=== PATIENT | female | born 1980 | race Caucasian/White ===

== ENCOUNTER 2016-09-19 12:22 | Emergency (ER) | payer OTHER ==
[~2016-09-19] VITALS: Ht 157.5 cm; Wt 68.0 kg
--- NOTE | ~2016-09-19 | CT4 ---
[facility] A Service of [facility] RADIOLOGY TEXT RESULTS PATIENT: SHRUTHI JOHNSON LOCATION: SED : 76 UNIT #: [id number] AGE: [address]: FREDRICK WHELAN SEX: F ORDER DR: [id number] [place] [id number] MR#: [id number] Acc #: [id number] NAME: SHRUTHI JOHNSON : 1980 SEX: F STUDY DATE/TIME: 09/19/2016 14:31 UNIT: SED ROOM: STUDY DESCRIPTION: CT Abd and Pelv Wo Cont Attending Physician: Fredrick Whelan Ordering Physician: Ana Smith M.D. Primary Care Physician: Emely Primary Care Physician MEDICAL IMAGING REPORT This report is preliminary unless electronic signature is present. EXAM CT abdomen and pelvis without contrast. HISTORY Left flank pain for [address] abdomen and pelvis was performed without contrast. This CT exam was performed with one or more of the following radiation dose reduction techniques: automatic exposure control, adjustment of mA and/or kV according to patient size, and iterative reconstruction. FINDINGS CT ABDOMEN: There is a small hiatal hernia. Incidental subcentimeter cyst in the lateral segment left hepatic lobe. The remainder of the liver is unremarkable. Gallbladder, spleen, pancreas, kidneys, and adrenal glands are normal. No renal calculi. No hydronephrosis or perinephric stranding. No bowel dilatation. Normal caliber abdominal aorta. No ascites. Very small umbilical hernia containing fat. Normal appendix. CT PELVIS: IUD within the uterus. No pelvic mass or fluid collection. No bowel dilatation. The urinary bladder is decompressed. IMPRESSION 1. No acute findings. 2. No urinary calculi or obstruction. 3. Normal appendix. 4. Small hiatal hernia and very small umbilical hernia containing fat. [facility] A Service of [facility] RADIOLOGY TEXT RESULTS PATIENT: SHRUTHI JOHNSON LOCATION: SED : 76 UNIT #: [id number] AGE: [address]: FREDRICK WHELAN SEX: F ORDER DR: Dictated by... Yousif Farmer M.D. THIS IS AN ELECTRONICALLY VERIFIED REPORT Yousif Farmer M.D. at 09/20/2016 10:07 PM DORI/bari TD: 09/19/2016 17:27 JOB #: [id number] MEDICAL IMAGING REPORT Page 1 of 1
[~2016-09-19 12:22] MED LIST: ABILIFY5 MG PO; LAMICTAL100 MG PO; NORCO 5/325 TAB1 TAB PO; PRENATAL1 TA1 PO
[2016-09-19 13:06] LABS: URINE APPEARANCE CLEAR; URINE BILIRUBIN NEG (NEG); URINE BLOOD 1+ (NEG); URINE COLOR YELLOW; URINE GLUCOSE NEG (NORM); URINE KETONE NEG (NEG); URINE LEUKOCYTE ESTERASE NEG (NEG); URINE NITRATE NEG (NEG); URINE PROTEIN NEG (NEG); URINE SOURCE CLEAN CATCH; URINE SPECIFIC GRAVITY 1.015 (1.003-1.035); URINE UROBILINOGEN 0.2 MG/DL (NORM)
[2016-09-19 13:09] LABS: MICRO INDICATED? YES
[2016-09-19 13:25] LABS: CULTURE INDICATED? NO; URINE BACTERIA NEG (NEG); URINE SQUAMOUS EPITHELIAL CELL FEW /[HPF]; URINE WBC NEG /[HPF] (0-5)
[2016-09-19 13:42] LABS: BASOPHIL# 0.2 X10e3 (0-0.3); BASOPHIL% 1.4 % (0-2.5); EOSINOPHIL# 0.2 X10e3 (0-0.7); EOSINOPHIL% 1.7 % (0.0-7.0); HEMATOCRIT 41.7 % (35.0-45.0); HEMOGLOBIN 14.6 gm/dL (12.0-16.0); LYMPHOCYTE# 3.1 X10e3 (1.0-3.5); LYMPHOCYTE% 28.4 % (17.0-45.0); MEAN CELL VOLUME 90.4 FL (83-96); MEAN CORPUSCULAR HEMOGLOBIN 31.6 PG (28-34); MEAN PLATELET VOLUME 7.5 FL (6.5-11.5); MONOCYTE# 0.4 X10e3 (0-1.0); NEUTROPHIL# 7.1 X10e3 (1.5-7.1); NEUTROPHIL% 64.5 % (40-75); PLATELET COUNT 265 X10e3 (140-420); RED BLOOD COUNT 4.61 X10e (3.90-5.30); RED CELL DISTRIBUTION WIDTH 12.4 % (11.0-15.5); WHITE BLOOD COUNT 10.9 X10e3 (4.0-10.5)
[2016-09-19 13:53] LABS: DIFF IND NO
[2016-09-19 14:05] LABS: ALBUMIN SERUM 4.5 g/dL (3.5-5.0); BILIRUBIN,TOTAL 0.5 mg/dL (0.2-2.0); BUN/CREATININE RATIO 18.57; CALCIUM SERUM 9.6 mg/dL (8.4-10.2); CREATININE SERUM 0.7 mg/dL (0.6-1.4); GLOM FILT RATE Estimated 109.9 mL/min (>60); POTASSIUM 3.9 mmol/L (3.5-5.1); PROTEIN TOTAL SERUM 7.6 g/dL (6.0-8.3)
== END 2016-09-19 15:58 | disposition home or self-care (01) ==
LOC: SED 12:22
PROVIDERS: Physician Assistant
DX: R10.9 Unspecified abdominal pain (principal); F17.200 Nicotine dependence, unspecified, uncomplicated
CPT/HCPCS: 36415; 74176; 80053; 81003; 84703; 85025; 96361; 96374; 99284; J1885